=== PATIENT | male | born 1990 | race Caucasian/White ===

== ENCOUNTER 2020-03-30 23:39 | Day surgery (SDC) | payer OTHER ==
[2020-03-31] MEDS ORDERED: KETOROLAC 30 MG/ML INJ ONE (01:16)
[2020-03-31 01:53] LABS: Absolute Lymphocytes (CBC) 2.5 K/uL (0.7-4.9); Basophils % 0.4 % (0-1.3); Hematocrit 40.5 % (39.6-49.0); Lymphocytes % 11.5 % (15.3-44.8); MPV 8.2 fL (7.6-11.3); RBC Red Blood Cell Count 4.59 M/uL (4.33-5.43)
[2020-03-31] MEDS ORDERED: ONDANSETRON 4 MG/2 ML VIAL ONE ×3 (01:56→07:44)
[2020-03-31] MEDS ORDERED: MORPHINE 4 MG/ML SYR ONE (01:57)
[2020-03-31 02:04] LABS: Albumin 3.8 g/dL (3.4-5.0); Bilirubin Total 0.3 mg/dL (0.2-1.0); Potassium 3.8 mmol/L (3.5-5.1); Protein, Total 7.6 g/dL (6.4-8.2)
[2020-03-31 03:07] LABS: Blood Morphology Comment NOT SEEN (NOT SEEN); Platelet Estimate ADEQ
[2020-03-31] MEDS ORDERED: FENTANYL CITR 100 MCG/2 ML ONE ×2 (03:32→05:17)
--- NOTE | 2020-03-31 04:07 | EDPHYS ---
Physician Documentation [facility] Name: Kate Cordero Age: 29 yrs Sex: Male : 1990 Arrival Date: 03/30/2020 Time: 23:40 Bed 2 Private MD: ED Physician Josiah Leo HPI: 03/31 01:54 This 29 yrs old Male presents to ER via Ambulatory with complaints of tw4 Testicular Swelling. 01:54 The patient presents with scrotal pain, of the right side, swelling, that is moderate. tw4 Onset: The symptoms/episode began/occurred 2 day(s) ago. Modifying factors: The symptoms are alleviated by nothing, the symptoms are aggravated by nothing. Associated signs and symptoms: The patient has no apparent associated signs or symptoms. Severity of symptoms: At their worst the symptoms were moderate, in the emergency department the symptoms are unchanged. The patient has not experienced similar symptoms in the past. Historical: - Allergies: 00:34 No Known Allergies; em - PMHx: 00:34 None; em - PSHx: 00:34 None; em - Immunization history:: Adult Immunizations. - Social history:: Smoking status: Patient reports the use of cigarette tobacco products, smokes 1.5 packs per day. ROS: 01:54 Constitutional: Negative for fever, chills, and weight loss, Eyes: Negative for injury, tw4 pain, redness, and discharge, Cardiovascular: Negative for chest pain, palpitations, and edema, Respiratory: Negative for shortness of breath, cough, wheezing, and pleuritic chest pain, Abdomen/GI: Negative for abdominal pain, nausea, vomiting, diarrhea, and constipation. 01:54 : Positive for testicular pain Exam: 01:54 Constitutional: This is a well developed, well nourished patient who is awake, alert, tw4 and in no acute distress. Head/Face: Normocephalic, atraumatic. Chest/axilla: Normal chest wall appearance and motion. Nontender with no deformity. No lesions are appreciated. Cardiovascular: Regular rate and rhythm with a normal S1 and S2. No gallops, murmurs, or rubs. Normal PMI, no JVD. No pulse deficits. Respiratory: Lungs have equal breath sounds bilaterally, clear to auscultation and percussion. No rales, rhonchi or wheezes noted. No increased work of breathing, no retractions or nasal flaring. Abdomen/GI: Soft, non-tender, with normal bowel sounds. No distension or tympany. No guarding or rebound. No evidence of tenderness throughout. 01:54 : Male external genitalia: swelling: of the right testicle is noted, scrotal, tenderness, of the right testicle is noted. Vital Signs: 00:19 BP 151 / 81; Pulse 102; Resp 18; Temp 98.4(O); Pulse Ox 99% on R/A; Weight 86.18 kg; em Height 5 ft. 7 in. (170.18 cm); Pain 9/10; 01:45 BP 139 / 76; Pulse 74; Resp 18; Pulse Ox 97% on R/A; Pain 5/10; em 02:25 BP 118 / 71; Pulse 64; Resp 18; Pulse Ox 97% on R/A; Pain 5/10; em 04:00 BP 122 / 62; Pulse 71; Resp 18; Pulse Ox 99% on R/A; Pain 3/10; em 00:19 Body Mass Index 29.76 (86.18 kg, 170.18 cm) em MDM: 00:19 Patient medically screened. tw4 02:02 Differential diagnosis: nonspecific abdominal pain, appendicitis, UTI. Data reviewed: tw4 vital signs, nurses notes. Data reviewed: lab test result(s), CBC, electrolytes, radiologic studies, ultrasound. Data interpreted: Pulse oximetry: Interpretation: normal. Counseling: I had a detailed discussion with the patient and/or guardian regarding: the historical points, exam findings, and any diagnostic results supporting the discharge/admit diagnosis, lab results, radiology results, the need to transfer to another facility. 04:15 Physician consultation: Reinier Finn MD was contacted at 03:55, regarding admission, tw4 to the operating room, patient's condition, need to evaluate the patient as soon as possible, and will see patient in OR. 03/31 01:31 Order name: CMP em 03/31 01:31 Order name: CBC with Manual Differential; Complete Time: 03:54 em 03/31 03:54 Interpretation: Normal except: BASOS 2; WBC 21.30; HGB 13.2; LYM% 11.5; KAREEM% 80.2; NEUT tw4 A 17.1; BANDS [F] 4; SEGS 83; LYM 7. 03/31 00:25 Order name: Scrotum Testicles US tw4 03/31 01:31 Order name: Comprehensive Metabolic Panel; Complete Time: 03:54 EDMS 03/31 03:54 Interpretation: Normal except: CL 110; GFR 83. tw4 03/31 03:00 Order name: SARS-COV-2 RT PCR; Complete Time: 03:54 EDMS 03/31 04:09 Order name: EKG - Nurse/Tech; Complete Time: 04:09 mg2 Administered Medications: 01:25 Drug: TORadol 30 mg Route: IVP; Site: right antecubital; em 01:35 Follow up: Response: No adverse reaction; Marked relief of symptoms; Pain is decreased em 01:29 Not Given (Other Intervention Used): TORadol 60 mg IM once em 01:41 Drug: Zofran (Ondansetron) 4 mg Route: IVP; Site: right antecubital; em 02:00 Follow up: Response: No adverse reaction em 01:43 Drug: morphine 4 mg Route: IVP; Site: right antecubital; em 02:00 Follow up: Response: No adverse reaction; Marked relief of symptoms; Pain is decreased; em RASS: Alert and Calm (0) 03:19 Drug: fentaNYL (PF) 50 mcg Route: IVP; Site: right antecubital; em 04:09 Follow up: Response: No adverse reaction; Marked relief of symptoms mg2 04:08 Drug: Zosyn 3.375 grams Route: IVPB; Infused Over: 60 mins; Site: right antecubital; em 04:57 Follow up: Response: No adverse reaction; IV Status: Completed infusion; IV Intake: em 100ml Disposition: 03/31/20 04:06 Hospitalization ordered by Reinier Finn for Inpatient Admission. Preliminary diagnosis are Torsion of testis, Torsion of appendix epididymis, Testicular torsion. - Bed requested for Telemetry/MedSurg (Inpatient). - Status is Inpatient Admission. em - Condition is Stable. - Problem is new. - Symptoms are unchanged. Signatures: Dispatcher [employer] Shlomo Leong, RN RN em Josiah Leo MD MD tw4 Victor Manuel Fam RN RN mg2 Corrections: (The following items were deleted from the chart) 01:58 01:33 CORONAVIRUS+ ordered. EDMS EDMS 04:58 04:06 Hospitalization Ordered by Reinier Finn MD for Inpatient Admission. Preliminary em diagnosis is Torsion of testis; Torsion of appendix epididymis; Testicular torsion. Bed requested for Telemetry/MedSurg (Inpatient). Status is Inpatient Admission. Condition is Stable. Problem is new. Symptoms are unchanged. tw4
--- NOTE | 2020-03-31 04:07 | ER ---
Nurse's Notes [facility] Name: Kate Cordero Age: 29 yrs Sex: Male : 1990 Arrival Date: 03/30/2020 Time: 23:40 Bed 2 Private MD: Diagnosis: Torsion of testis;Torsion of appendix epididymis;Testicular torsion Presentation: 03/31 00:19 Chief complaint: Patient states: RIGHT testicular swelling and redness that started 2 em days ago after doing some plumbing work, thinks he might have pulled something, denies abd pain, N/V, fever or dysuria. Coronavirus screen: Client denies travel out of the [place] in the last 14 days. Ebola Screen: Patient negative for fever greater than or equal to 101.5 degrees Fahrenheit, and additional compatible Ebola Virus Disease symptoms Patient denies exposure to infectious person. Patient denies travel to an Ebola-affected area in the 21 days before illness onset. No symptoms or risks identified at this time. Initial Sepsis Screen: Does the patient meet any 2 criteria? HR > 90 bpm. No. Patient's initial sepsis screen is negative. Does the patient have a suspected source of infection? No. Patient's initial sepsis screen is negative. Risk Assessment: Do you want to hurt yourself or someone else? Patient reports no desire to harm self or others. Onset of symptoms was March 29, 2020. 00:19 Method Of Arrival: Ambulatory em 00:19 Acuity: ALETA 3 em Historical: - Allergies: 00:34 No Known Allergies; em - PMHx: 00:34 None; em - PSHx: 00:34 None; em - Immunization history:: Adult Immunizations. - Social history:: Smoking status: Patient reports the use of cigarette tobacco products, smokes 1.5 packs per day. Screenin:19 Abuse screen: Denies threats or abuse. Nutritional screening: No deficits noted. em Tuberculosis screening: No symptoms or risk factors identified. Fall Risk None identified. Assessment: 00:19 General: Appears in no apparent distress. uncomfortable, Behavior is calm, cooperative, em appropriate for age. Pain: Complains of pain in right testicle Pain currently is 9 out of 10 on a pain scale. Pain began 2-3 days ago. Neuro: Level of Consciousness is awake, alert, obeys commands, Oriented to person, place, time, situation. Cardiovascular: Capillary refill < 3 seconds Patient's skin is warm and dry. Respiratory: Airway is patent Respiratory effort is even, unlabored, Respiratory pattern is regular, symmetrical. GI: Abdomen is flat, Patient currently denies abdominal pain, nausea, vomiting. : Genitalia appear normal Swelling noted on scrotum Denies burning with urination. Derm: Skin is intact, is healthy with good turgor, Skin is pink, warm \T\ dry. Musculoskeletal: Capillary refill < 3 seconds, Range of motion: intact in all extremities. 01:25 Reassessment: Patient appears in no apparent distress at this time. Patient and/or em family updated on plan of care and expected duration. Pain level reassessed. Patient is alert, oriented x 3, equal unlabored respirations, skin warm/dry/pink. Patient states feeling better. 02:25 Reassessment: Patient appears in no apparent distress at this time. Patient and/or em family updated on plan of care and expected duration. Pain level reassessed. Patient is alert, oriented x 3, equal unlabored respirations, skin warm/dry/pink. 03:10 Reassessment: Patient appears in no apparent distress at this time. pending acceptance em from a facility that has capacity, reports pain is coming back, rates pain 8/10, provider notified, received VO for fentanyl 50 mcg IVP x 1. 04:00 Reassessment: Patient appears in no apparent distress at this time. Patient and/or em family updated on plan of care and expected duration. Pain level reassessed. Patient is alert, oriented x 3, equal unlabored respirations, skin warm/dry/pink. Vital Signs: 00:19 BP 151 / 81; Pulse 102; Resp 18; Temp 98.4(O); Pulse Ox 99% on R/A; Weight 86.18 kg; em Height 5 ft. 7 in. (170.18 cm); Pain 9/10; 01:45 BP 139 / 76; Pulse 74; Resp 18; Pulse Ox 97% on R/A; Pain 5/10; em 02:25 BP 118 / 71; Pulse 64; Resp 18; Pulse Ox 97% on R/A; Pain 5/10; em 04:00 BP 122 / 62; Pulse 71; Resp 18; Pulse Ox 99% on R/A; Pain 3/10; em 00:19 Body Mass Index 29.76 (86.18 kg, 170.18 cm) em ED Course: 03/30 23:40 Patient arrived in ED. cf2 03/31 00:18 Shlomo Luna, RN is Primary Nurse. em 00:19 Josiah Leo MD is Attending Physician. tw4 00:19 Patient has correct armband on for positive identification. Placed in gown. Bed in low em position. Side rails up X2. Adult w/ patient. Pulse ox on. NIBP on. 00:31 Triage completed. em 01:20 Scrotum Testicles US In Process Unspecified. EDMS 01:20 Initiated transfer to [facility] spoke with Faiza Madison. ar5 01:25 Initial lab(s) drawn, by me, sent to lab. Inserted saline lock: 20 gauge in right em antecubital area, using aseptic technique. Blood collected. 01:[address] [facility] facilities declined due to being at capacity per Faiza Madison. ar5 01:33 Initiated transfer to [facility] spoke with Henna Archuleta. ar5 02:10 All [facility] facilities declined due to being at capacity per Henna Archuleta. ar5 02:11 Initiated to [facility] spoke with Edelmira. ar5 02:17 All [facility] facilities declined due to being at capacity. ar5 02:18 Initiated transfer to [facility] spoke with Genny. ar5 02:23 All [facility] facilities declined due to being at capacity per Genny. ar5 02:29 Initiated transfer to all [facility] facilities spoke with Glenis Beckwith, she informed us ar5 they have a bed in [place]. 02:55 Initiated transfer to [facility] spoke with Kenya. She kept me on the phone and ar5 informed me they have to decline due to being at capacity. 02:58 Initiated transfer to [place] spoke with Misty. She declined the pt. due to being ar5 at capacity. 03:01 Initiated transfer to [facility] spoke with Eliz, she will give us a call ar5 back. 04:04 Reinier Finn MD is Hospitalizing Provider. tw4 04:56 No provider procedures requiring assistance completed. Patient admitted, IV remains in em place. Administered Medications: 01:25 Drug: TORadol 30 mg Route: IVP; Site: right antecubital; em 01:35 Follow up: Response: No adverse reaction; Marked relief of symptoms; Pain is decreased em 01:29 Not Given (Other Intervention Used): TORadol 60 mg IM once em 01:41 Drug: Zofran (Ondansetron) 4 mg Route: IVP; Site: right antecubital; em 02:00 Follow up: Response: No adverse reaction em 01:43 Drug: morphine 4 mg Route: IVP; Site: right antecubital; em 02:00 Follow up: Response: No adverse reaction; Marked relief of symptoms; Pain is decreased; em RASS: Alert and Calm (0) 03:19 Drug: fentaNYL (PF) 50 mcg Route: IVP; Site: right antecubital; em 04:09 Follow up: Response: No adverse reaction; Marked relief of symptoms mg2 04:08 Drug: Zosyn 3.375 grams Route: IVPB; Infused Over: 60 mins; Site: right antecubital; em 04:57 Follow up: Response: No adverse reaction; IV Status: Completed infusion; IV Intake: em 100ml Intake: 04:57 IV: 100ml; Total: 100ml. em Outcome: 04:06 Decision to Hospitalize by Provider. tw4 04:56 Admitted to OR accompanied by nurse, via stretcher, with chart, Report called to vasile Juárez RN 04:56 Condition: stable 04:56 Instructed on the need for admit, Demonstrated understanding of instructions. 04:58 Patient left the ED. em Signatures: Dispatcher [employer] Shlomo Leong RN RN Josiah Leo MD MD tw4 Victor Manuel Fam RN RN [facility] Maryjo Brush ar5 Ariel Smith cf2 Corrections: (The following items were deleted from the chart) 00:35 00:19 Chief complaint: Patient states: RIGHT testicular swelling and redness that em started 2 days ago after working on pipes, thinks he might have pulled something, denies abd pain, N/V, fever or dysuria em :16 00:19 : Denies burning with urination, em em 01:16 00:19 Derm: Skin is intact, is healthy with good turgor, Skin is pink, warm \T\ dry. em em 01:33 00:19 Chief complaint: Patient states: RIGHT testicular swelling and redness that em started 2 days ago after working doing some plumbing work, thinks he might have pulled something, denies abd pain, N/V, fever or dysuria em 01:40 01:[address] [facility] facilities declined due to being at capacity per Faiza Madison ar5 ar5 02:21 02:10 [facility] declined due to being at capacity per Henna Archuleta ar5 ar5 03:05 02:29 Initiated transfer to all [facility] facilities spoke with Glenis Beckwith ar5 ar5
[2020-03-31] MEDS ORDERED: PIPER/TAZO/NS 3.375gm 3.375 GM/100 ML BAG ONE (04:15)
[2020-03-31] MEDS ORDERED: LIDOCAINE 2% MPF 5 ML VIAL ONE (05:17)
[2020-03-31] MEDS ORDERED: propofoL 200 MG/20 ML VIAL IV ONE (05:17)
[2020-03-31] MEDS ORDERED: Ringers Lactate 1,000 ML IV ONE (05:27)
[2020-03-31] MEDS ORDERED: LIDOCAINE 1% MPF 30 ML VIAL ONE (05:35)
[2020-03-31] MEDS ORDERED: BUPIVACAINE 0.25% PF 30 ML VIAL ONE (05:35)
[2020-03-31] MEDS ORDERED: dexAMETHasone 10 MG/ML VIAL ONE (05:35)
[2020-03-31] MEDS ORDERED: GLYCOPYRROLATE 0.2 MG/ML SYR ONE (06:01)
[2020-03-31] MEDS: BACITRACIN OINTMENT 15 GM TUBE TOP ONE ×2 (06:58→07:01)
[2020-03-31] MEDS ORDERED: HYDROMORPHONE HCL 1 MG/ML INJ ONE (07:45)
[2020-03-31] MEDS ORDERED: MEPERIDINE HCL 25 MG/ML SYR ONE (07:45)
[2020-03-31] MEDS ORDERED: PROMETHAZINE INJ 25 MG/ML AMP ONE (07:46)
[2020-03-31] MEDS ORDERED: HYDROCODONE/APAP 5/325 MG TAB PO PRN (08:20)
[2020-03-31] MEDS ORDERED: HYDROCODONE/APAP 10/325 TAB ONE (08:58)
--- NOTE | 2020-03-31 09:40 | OP ---
Surgeon: CHANCE WESLEY Preoperative Diagnosis: Right testicular torsion. Postoperative Diagnosis: Right testicular torsion. Principle Procedures: 1.Right scrotal exploration. 2.Right testicular detorsion, 540 degrees of rotation noted. 3.Left testicular orchiopexy. 4.Doppler ultrasound of the right testis. 5.Right testicular orchiopexy and closed suction drain placement. Indication For Procedure: Please see consultation note and HPI dictated previously. Scrotal ultraso und and images directly reviewed and I agreed with the suspected diagnosis of right testicular torsio n. Procedure In Detail: The patient was consented in the preoperative holding area before being transfe rred to the operative suite where general anesthesia was induced. He was placed supine on the operat roseann table, padded and secured to the table appropriately. Pneumoboots was provided for DVT prophylax is. His genitalia were scrubbed using Betadine scrub and shaved in the region of the scrotum where t he anticipated right hemiscrotal incision would take place. He was then prepped using Betadine and d raped in standard fashion. The case was begun using 0.25% Marcaine to instill a Mouna's line incisi on marking within the right hemiscrotum that extended to the midline raphae approximately 2.5 cm in l ength. This was incised using a 15 blade and then deepened through the subcutaneous and dartos layer s using electrocautery. Eventually, the tunica vaginalis was sharply divided and entered, and the te stis was delivered via the opening. It was then surveyed and noted to be significantly hemorrhagic w ithin the epididymal head region and extending approximately 3 cm proximally up the cord. A portion of the testis superiorly was dusky with some duskiness inferiorly as well. I then observed that the testicle had been torsed 540 degrees and detorsed it by that amount in order to restore flow to the t estis. Immediately, the inferior pole of the testis began to pink up, indicative of potential salvag eability. The testis itself did not appear necrotic. As a result, the testis was irrigated and was wrapped in a warm saline soaked lap. It was then set aside in the detorsed position to allow recover y for a period while I turned my attention to the left hemiscrotum to perform an orchiopexy. Extending the right hemiscrotal incision to the midline raphae, I then divided the midline raphae to enter the left hemiscrotum. The tunica vaginalis was similarly divided in the left hemiscrotum, and the testis was visible. It was then delivered via the opening and ensured to be in the orthotopic po sition. There was a similar horizontal lie to the testis, but there was no evidence of twisting. As a result, the intrascrotal contents were irrigated, and then using 5-0 Prolene suture, a horizontal suture was applied via the lateral midpole of the testis into the lateral portion of the left hemiscr otum and an additional inferior pole horizontal suture was applied and attached to the most dependent portion of the scrotum. The testis was then returned in the orthotopic position back into the scrot al sac on the left side and each of the sutures was tied down to secure it in position and the orchio pexy on the left side was complete. The testicle and the subcutaneous tissues were then copiously ir rigated using saline, and the dartos layers were closed using 3-0 Vicryl suture in a running fashion. I then closed the median raphae using 3-0 Vicryl suture also in a running fashion. I then turned m y attention back to the right testis. During the time of the left orchiopexy, the right testis did improve in clinical appearance with sign ificant pinking of the lower pole of the testis. Thus, I used the Doppler ultrasound to assess for v ascular flow. Clear evidence of vasal artery blood flow to the inferior pole of the testis was demon strated initially. I was then able to demonstrate testicular artery flow to the region of the head o f the epididymis with some turbulent flow noted in the actual epididymis itself. While the epididymi s remained significantly hemorrhagic in appearance and somewhat dusky, there was no evidence of activ e necrosis at this point. As a result, I determined the testicle was at least partially viable and a t least the inferior one-third to one-half of the testis was likely to survive. As a result, I then copiously irrigated the testicle and the intrascrotal contents with saline and utilized 5-0 PDS sutur e to again perform an orchiopexy of the right testis. Right testicular orchiopexy: The 5-0 PDS suture was then used to affix the lateral right hemiscrotum to the lateral mid pole of th e testis and an additional suture was applied to the inferior pole of the testis to the most dependen t portion of the right hemiscrotum. The testis was then delivered back into the scrotal sac, and the sutures were tied down completing the orchiopexy. The subcutaneous tissues were then copiously irri gated along with the testis, and a 10-Paraguayan close suction drain was then applied extending out of th e most lateral border beyond the incision. This was placed to self suction using a bulb, and the jonathan tos layers were closed in a running fashion on the right side using 3-0 Vicryl suture. The skin and subcutaneous tissues were then closed in a running fashion using 3-0 chromic suture dipped in bacitra yuki. The skin was then covered using bacitracin, and a fluff gauze along with a scrotal support was then applied. Prior to awakening the patient from general anesthesia, a 16-Paraguayan red rubber cathete r was placed into his bladder to decompress it of any urine, and a couple of 100 cc of clear yellow u rine did drain. The patient was then awakened from general anesthesia, [facility] a ok then transferred to the recovery room in good condition. Complications: None. Discharge Disposition: He will require followup within the next few days to assess the ongoing viabi lity of the right testis. He would benefit likely from a scrotal ultrasound in about a week or 2 ass uming he does not have significant increasing pain, which would be suggestive of possible necrosis an d failure to thrive of the right testis. This would then mandate more urgent ultrasound completion t o determine if an orchiectomy might be required to remove a necrotic organ. Otherwise, he will be di scharged with a prescription for antimicrobial therapy for at least the next 14 days to minimize any risk of infectious complication or epididymitis associated with this event. WR/MODL Voice ID: [id number] Report ID: [id number]
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
[2020-03-31 11:16] VITALS: O2SAT 98
[2020-03-31 12:24] VITALS: BP 106/53; TEMP 98
--- NOTE | 2020-03-31 13:50 | RAD REPORT ---
EXAM DESCRIPTION: US - Scrotum Testicles - 03/31/2020 1:20 am CLINICAL HISTORY: Scrotal pain and swelling TECHNIQUE: Real-time and vazquez scale sonographic imaging of the scrotum and its contents was kristi gatica COMPARISON: None available for comparison FINDINGS: Right Testis: The right testis measures 4.4 x 2.4 x 2.9 cm. Somewhat heterogeneous in echo texture. No focal mass. No demonstrable vascularity on color Doppler interrogation. Left testis: The left testis measures 3.5 x 2.3 x 2.3 cm. Normal echotexture. No focal mass. Normal f low. Right epididymis: Enlarged, heterogeneous. No demonstrable vascularity on color Doppler interrogation . Left epididymis: 6 cm cyst. Normal flow. Hydroceles: Small to moderate complex hydrocele on the right. Varicoceles: None IMPRESSION: 1. No demonstrable vascularity within the right testis or epididymis compatible with t orsion. 2. Other findings as above. THIS REPORT CONTAINS FINDINGS THAT MAY BE CRITICAL TO PATIENT CARE: The findings were verbally discus sed via telephone conference with Dr. Josiah Leo on 03/31/2020 1:40 AM [facility]. The results were ackn owledged and understood. Electronically signed by: Logan Thorne MD 03/31/2020 1:40 AM [facility] Due to temporary technical issues with the PACS/Fluency reporting system, reports are being signed by the in house radiologists without review as a courtesy to insure prompt reporting. The interpreting radiologist is fully responsible for the content of the report.
--- NOTE | 2020-03-31 23:58 | EKG ---
Test Date: 2020-03-31 Test Time: 04:12:19 Industrial Machine Operator: JYOTHI MEASUREMENT RESULTS: Intervals: Rate: 65 NC: 138 QRSD: 86 QT: 380 QTc: 395 Holstein: P: 55 NC: 138 QRS: 88 T: 62 INTERPRETIVE STATEMENTS: Normal sinus rhythm Normal ECG No previous ECG available for comparison Electronically Signed On 03-31-20 23:57:39 BUSINESS EMPLOYMENT SPECIALIST by Brett Paul
== END 2020-03-31 11:15 | disposition home or self-care (01) ==
LOC: ER 23:39 → OR 03-31 05:29
PROVIDERS: ATTEND Urology
PROC: 0VSC0ZZ Reposition Bilateral Testes, Open Approach (ICD-10-PCS; principal; 2020-03-31 06:00)
DX: N44.00 Torsion of testis, unspecified (principal); Z20.822 Contact with and (suspected) exposure to COVID-19
CPT/HCPCS: 54600; 96365; 93005; 85025; 36415; 80053; 76870; 96375; 99285; U0003; J2704; J2550; J3010 ×2; J2543; J1100; J2175; J1170; J7120; J2405 ×2

== ENCOUNTER 2022-01-23 10:31 | Emergency (ER) | payer OTHER, SELFPAY ==
--- OUTSIDE RECORDS SUMMARY | 2022-01-23 10:34 | XMS REPORT | Continuity of Care Document ---
:1990 Author Organization [facility] t Address [address] [place] [address] Dr. Rain [address] [place] [id number] Care Team Providers Name Role Phone Unavailable Unavailable Unavailable Problems This patient has no known problems. Allergies, Adverse Reactions, Alerts This patient has no known allergies or adverse reactions. Medications This patient has no known medications. Procedures This patient has no known procedures. Encounters Start End Encounter Admission Attending Care Care Encounter Source Date/Time Date/Time Type Type Clinicians Facility Department ID 2021-03-03 Outpatient [facility] [id number] Common 12:35:31 [id number] [facility] Results This patient has no known results.
[2022-01-23] MEDS ORDERED: NA CHLORIDE 0.9% 1,000 ML ONE (10:51)
[2022-01-23] MEDS ORDERED: ONDANSETRON 4 MG/2 ML VIAL ONE (10:51)
[2022-01-23] MEDS ORDERED: MORPHINE 4 MG/ML SYR ONE (10:51)
[2022-01-23 11:01] LABS: Lymphocytes % 22.7 % (15.3-44.8); MCV 86.9 fL (80-100); MPV 6.8 fL (7.6-11.3); RBC Red Blood Cell Count 4.72 M/uL (4.33-5.43)
[2022-01-23 11:11] LABS: Albumin 3.9 g/dL (3.4-5.0); Bilirubin Total 0.4 mg/dL (0.2-1.0); Potassium 3.9 mmol/L (3.5-5.1); Protein, Total 7.5 g/dL (6.4-8.2)
[2022-01-23] MEDS ORDERED: KETOROLAC 30 MG/ML INJ ONE (11:15)
--- NOTE | 2022-01-23 11:53 | RAD REPORT ---
EXAM DESCRIPTION: CT - Abdomen Pelvis W Contrast - 01/23/2022 11:24 am CLINICAL HISTORY: abdominal pain, epigastric COMPARISON: <Comparisons> TECHNIQUE: Biphasic, helical CT imaging of the abdomen and pelvis was performed following 100 ml non -ionic IV contrast. Oral contrast: No. All CT scans are performed using dose optimization technique as appropriate and may include automated exposure control or mA/KV adjustment according to patient size. FINDINGS: No suspicious findings in the lung bases. The liver, spleen, and pancreas show no suspicious findings. Gallbladder is absent. Biliary tree is n ormal size. Minimal amount of pneumobilia present in the left lobe biliary radicles. This is not a co mmon if the patient has had a sphincterotomy along with a cholecystectomy. Symmetric renal function is seen with no hydronephrosis or suspicious renal mass. Few small sub centi meter renal parenchymal cysts are present bilaterally. No pyelonephritis or acute parenchymal process . No bladder abnormalities. No adrenal abnormalities. No dilated bowel loops or bowel wall thickening. Appendix normal. Gastric assessment is limited. Ther e is almost no content within the lumen. This accentuates wall thickness limiting evaluation of the s tomach. No free air, free fluid or inflammatory stranding. No hernia, mass or bulky lymphadenopathy. No suspicious bony findings. IMPRESSION: Contrast enhanced CT abdomen and pelvis showing no significant or suspicious finding. Pneumobilia is present without biliary dilatation. Pneumobilia is not unusual if the patient had a sp hincterotomy along with the cholecystectomy. Gastric assessment is limited. The absence of lumen content accentuates wall thickness.
--- NOTE | 2022-01-23 12:28 | EDPHYS ---
Physician Documentation [facility] Name: Kate Cordero Age: 31 yrs Sex: Male : 1990 Arrival Date: 01/23/2022 Time: 10:32 Bed 19 Private MD: ED Physician Duglas Moreno HPI: 01/23 10:42 This 31 yrs old Male presents to ER via Ambulatory with complaints of Abdominal Pain. jmm 10:42 The patient presents with abdominal pain in the epigastric area. Onset: The jmm symptoms/episode began/occurred gradually, 1 week(s) ago. The symptoms do not radiate. Is a 31-year-old male 1 month status post cholecystectomy. Patient states that his gallbladder was removed and he also received an endoscopy with ERCP at [facility]. Patient states that approximately beginning a week ago developing epigastric pain worse in the evenings. Denies vomiting or diarrhea. Denies fever.. Historical: - Allergies: 10:37 No Known Allergies; ll1 - PMHx: 10:37 None; ll1 - PSHx: 10:37 Cholecystectomy; ll1 - Immunization history:: Client reports having NOT received the Covid vaccine. - Social history:: Smoking status: Patient reports the use of cigarette tobacco products, smokes one pack cigarettes per day. ROS: 10:42 Constitutional: Negative for fever, chills, and weight loss, Cardiovascular: Negative jmm for chest pain, palpitations, and edema, Respiratory: Negative for shortness of breath, cough, wheezing, and pleuritic chest pain. 10:42 Abdomen/GI: Positive for abdominal pain. 10:42 All other systems are negative. Exam: 10:42 Constitutional: This is a well developed, well nourished patient who is awake, alert, jmm and in no acute distress. Head/Face: atraumatic. Eyes: EOMI, no conjunctival erythema appreciated ENT: Moist Mucus Membranes Neck: Trachea midline, Supple Chest/axilla: Normal chest wall appearance and motion. Cardiovascular: Regular rate and rhythm. No edema appreciated Respiratory: Normal respirations, no respiratory distress appreciated 10:42 Back: Normal ROM Skin: General appearance color normal MS/ Extremity: Moves all extremities, no obvious deformities appreciated, no edema noted to the lower extremities Neuro: Awake and alert Psych: Behavior is normal, Mood is normal, Patient is cooperative and pleasant 10:42 Abdomen/GI: Inspection: abdomen appears normal, Bowel sounds: normal, Palpation: soft, mild abdominal tenderness, in the epigastric area. Vital Signs: 10:38 BP 141 / 80; Pulse 88; Resp 18; Temp 97.6; Pulse Ox 100% ; Weight 79.38 kg; Height 5 ll1 ft. 7 in. (170.18 cm); Pain 10/10; 11:15 BP 133 / 89; Pulse 57; Resp 16; Pulse Ox 100% ; ll1 12:08 Pain 0/10; ll1 10:38 Body Mass Index 27.41 (79.38 kg, 170.18 cm) ll1 MDM: 11:04 Patient medically screened. [facility] 12:26 Data reviewed: vital signs, nurses notes. Counseling: I had a detailed discussion with [facility] the patient and/or guardian regarding: the historical points, exam findings, and any diagnostic results supporting the discharge/admit diagnosis, lab results, radiology results, the need for outpatient follow up, to return to the emergency department if symptoms worsen or persist or if there are any questions or concerns that arise at home. ED course: Imaging studies revealed pneumobilia, which apparently is normal status postcholecystectomy. Patient's pain is relieved in the ED. Patient is advised to follow-up with GI for further evaluation otherwise given strict return precautions. Patient understood agrees plan of care.. 01/23 10:42 Order name: CBC with Diff; Complete Time: 11:04 [facility] 01/23 10:42 Order name: CMP; Complete Time: 11:12 [facility] 01/23 10:42 Order name: Lipase; Complete Time: 11:12 [facility] 01/23 10:42 Order name: CT Abd/Pelvis - IV Contrast Only; Complete Time: 11:57 [facility] 01/23 10:42 Order name: IV Saline Lock; Complete Time: 10:43 [facility] 01/23 10:42 Order name: Labs collected and sent; Complete Time: 10:43 [facility] Administered Medications: 10:51 Drug: Zofran (Ondansetron) 4 mg Route: IVP; Site: right antecubital; ll1 11:16 Follow up: Response: No adverse reaction 1 10:53 Drug: morphine 4 mg Route: IVP; Infused Over: 4 mins; Site: right antecubital; ll1 11:16 Follow up: Response: No adverse reaction; Pain is decreased; RASS: Alert and Calm (0) ll1 10:55 Drug: NS 0.9% 1000 ml Route: IV; Rate: 1 bolus; Site: right antecubital; ll1 12:08 Follow up: Response: No adverse reaction; IV Status: Completed infusion; IV Intake: ll1 1000ml 11:16 Drug: Ketorolac 30 mg Route: IVP; Site: right antecubital; ll1 12:08 Follow up: Response: No adverse reaction; Pain is decreased; RASS: Alert and Calm (0) ll1 Disposition Summary: 01/23/22 12:28 Discharge Ordered Location: Home [facility] Condition: Stable [facility] Diagnosis - Epigastric pain [facility] Followup: [facility] - With: Vikram Shi MD - When: 1 - 2 days - Reason: Recheck today's complaints, Continuance of care, Re-evaluation by your physician Followup: [facility] - With: Cooper Carranza MD - When: 2 - 3 days - Reason: Recheck today's complaints, Continuance of care, Re-evaluation by your physician Discharge Instructions: - Discharge Summary Sheet [facility] - Abdominal Pain, Adult [facility] Forms: - Medication Reconciliation Form [facility] - Thank You Letter [facility] - Antibiotic Education [facility] - Prescription Opioid Use [facility] Prescriptions: - Carafate 1 gram Oral Tablet - take 1 tablet by ORAL route 4 times per day take on an empty stomach, beginning jmm on waking and last dose at bedtime; 100 tablet; Refills: 0, Product Selection Permitted - Pepcid 20 mg Oral Tablet - take 1 tablet by ORAL route every 12 hours for 10 days; 20 tablet; Refills: 0, [facility] Product Selection Permitted - dicyclomine 20 mg Oral Tablet - take 1 tablet by ORAL route 4 times per day; 30 tablet; Refills: 0, Product [facility] Selection Permitted - ondansetron 4 mg Oral tablet,disintegrating - take 1 tablet by ORAL route every 4-6 hours As needed; 20 tablet; Refills: 0, [facility] Product Selection Permitted Signatures: Dispatcher [employer] Jong Son PA PA Brian Toth RN RN ll1
--- NOTE | 2022-01-23 12:28 | ER ---
Nurse's Notes [facility] Name: Kate Cordero Age: 31 yrs Sex: Male : 1990 Arrival Date: 01/23/2022 Time: 10:32 Bed 19 Private MD: Diagnosis: Epigastric pain Presentation: 01/23 10:38 Chief complaint: Patient states: Upper abd pain for 1 week, more severe past few days. ll1 Denies fever, no N/V/D. Had gallbladder removed last month. Coronavirus screen: Vaccine status: Patient reports being unvaccinated. Client denies travel out of the [place] in the last 14 days. At this time, the client does not indicate any symptoms associated with coronavirus-19. Ebola Screen: Patient denies travel to an Ebola-affected area in the 21 days before illness onset. Initial Sepsis Screen: Does the patient meet any 2 criteria? No. Patient's initial sepsis screen is negative. Does the patient have a suspected source of infection? Yes: Acute abdominal pain. Risk Assessment: Do you want to hurt yourself or someone else? Patient reports no desire to harm self or others. Onset of symptoms was January 16, 2022. 10:38 Method Of Arrival: Ambulatory ll1 10:38 Acuity: ALETA 3 ll1 Triage Assessment: 10:39 General: Appears uncomfortable, Behavior is calm, cooperative, appropriate for age. ll1 Pain: Complains of pain in abdomen Pain currently is 10 out of 10 on a pain scale. Quality of pain is described as burning, aching, sharp, Pain began about 1 week. Neuro: No deficits noted. Cardiovascular: No deficits noted. GI: Bowel sounds present X 4 quads. Abd is soft Abdomen is tender to palpation in epigastric area and left upper quadrant Parent/caregiver reports the patient having cramping, upper abdominal pain. Historical: - Allergies: 10:37 No Known Allergies; ll1 - PMHx: 10:37 None; ll1 - PSHx: 10:37 Cholecystectomy; ll1 - Immunization history:: Client reports having NOT received the Covid vaccine. - Social history:: Smoking status: Patient reports the use of cigarette tobacco products, smokes one pack cigarettes per day. Screenin:18 [facility] ED Fall Risk Assessment (Adult) Altered Elimination Yes (1 pt) Score/Fall Risk ll1 Level 0 - 2 = Low Risk Oriented to surroundings, Maintained a safe environment, Educated pt \T\ family on fall prevention, incl call for assistance when getting out of bed, Hourly rounding (assess needs \T\ fall precautionary measures) done. Abuse screen: Denies threats or abuse. Nutritional screening: No deficits noted. Tuberculosis screening: No symptoms or risk factors identified. Assessment: 11:16 Reassessment: No changes from previously documented assessment. Patient and/or family ll1 updated on plan of care and expected duration. Pain level reassessed. Patient is alert, oriented x 3, equal unlabored respirations, skin warm/dry/pink. 12:41 General: Pt refused discharge VS. kb3 Vital Signs: 10:38 BP 141 / 80; Pulse 88; Resp 18; Temp 97.6; Pulse Ox 100% ; Weight 79.38 kg; Height 5 ll1 ft. 7 in. (170.18 cm); Pain 10/10; 11:15 BP 133 / 89; Pulse 57; Resp 16; Pulse Ox 100% ; ll1 12:08 Pain 0/10; ll1 10:38 Body Mass Index 27.41 (79.38 kg, 170.18 cm) ll1 ED Course: 10:32 Patient arrived in ED. as 10:32 Jong Maier PA is PHCP. [facility] 10:32 Duglas Moreno MD is Attending Physician. [facility] 10:37 Brian Matos, CHANELL is Primary Nurse. ll1 10:37 Arm band placed on Patient placed in an exam room, on a stretcher. ll1 10:39 Triage completed. ll1 10:43 Patient has correct armband on for positive identification. Bed in low position. Call mm9 light in reach. Pulse ox on. NIBP on. PATIENT IS VERY CURT AND AGITATED. 10:50 Inserted saline lock: 22 gauge in right antecubital area, using aseptic technique. ll1 Blood collected. 11:19 No provider procedures requiring assistance completed. ll1 11:26 CT Abd/Pelvis - IV Contrast Only In Process Unspecified. EDMS 12:27 Vikram Shi MD is Referral Physician. jmm 12:28 Cooper Carranza MD is Referral Physician. jmm 12:42 IV discontinued, intact, bleeding controlled, No redness/swelling at site. kb3 Administered Medications: 10:51 Drug: Zofran (Ondansetron) 4 mg Route: IVP; Site: right antecubital; ll1 11:16 Follow up: Response: No adverse reaction ll1 10:53 Drug: morphine 4 mg Route: IVP; Infused Over: 4 mins; Site: right antecubital; ll1 11:16 Follow up: Response: No adverse reaction; Pain is decreased; RASS: Alert and Calm (0) ll1 10:55 Drug: NS 0.9% 1000 ml Route: IV; Rate: 1 bolus; Site: right antecubital; ll1 12:08 Follow up: Response: No adverse reaction; IV Status: Completed infusion; IV Intake: ll1 1000ml 11:16 Drug: Ketorolac 30 mg Route: IVP; Site: right antecubital; ll1 12:08 Follow up: Response: No adverse reaction; Pain is decreased; RASS: Alert and Calm (0) ll1 Medication: 11:19 VIS not applicable for this client. ll1 Intake: 12:08 IV: 1000ml; Total: 1000ml. ll1 Outcome: 12:28 Discharge ordered by . gael 12:42 Discharged to home ambulatory. kb3 12:42 Condition: stable 12:42 Discharge instructions given to patient, Instructed on discharge instructions, follow up and referral plans. medication usage, Demonstrated understanding of instructions, follow-up care, medications, Prescriptions given X 4. 12:42 Patient left the ED. kb3 Signatures: Dispatcher [employer] EDMS Jong Maier PA PA jmm Martinez, Amelia as Lewis, Lynsay RN RN 1 Tammy Bueno RN RN kb3 Agnes Garrison mm9
[2022-01-23 13:02] VITALS: TEMP 97.6; O2SAT 100
[2022-01-23 13:07] VITALS: BP 133/89
== END 2022-01-23 12:42 | disposition home or self-care (01) ==
LOC: ER 10:31
DX: R10.13 Epigastric pain (principal)
CPT/HCPCS: 36415; 74177; 80053; 82565; 83690; 85025; 96361; 96374; 96375; 99284; J2405; J7030; Q9967

== ENCOUNTER 2023-12-16 04:40 | Emergency (ER) | payer SELFPAY ==
[2023-12-16] MEDS ORDERED: MORPHINE 4 MG/ML SYR ONE (05:10)
[2023-12-16] MEDS ORDERED: NA CHLORIDE 0.9% 1,000 ML ONE (05:10)
[2023-12-16] MEDS ORDERED: FAMOTIDINE 20 MG/2 ML VIAL IV ONE (05:10)
[2023-12-16] MEDS ORDERED: ONDANSETRON 4 MG/2 ML VIAL ONE (05:10)
[2023-12-16 05:21] LABS: Absolute Basophils 0.1 K/uL (0-0.5); Absolute Eosinophils 0.9 K/uL (0-0.5); Absolute Lymphocytes (CBC) 2.8 K/uL (0.7-4.9); Absolute Monocytes 0.6 K/uL (0.1-1.3); Absolute Neutrophil 6.6 K/uL (1.8-8.0); Basophils % 0.5 % (0-1.3); Eosinophils % 7.8 % (0-4.4); Hematocrit 44.3 % (39.6-49.0); Hemoglobin 14.7 g/dL (13.6-17.9); Lymphocytes % 25.7 % (15.3-44.8); MCH 29.6 pg (27.0-35.0); MCHC 33.3 g/dL (32.0-36.0); MPV 7.2 fL (7.6-11.3); Monocytes % 5.6 % (3.3-12.3); Neutrophils % 60.4 % (41.7-73.7); Platelets 299 thou/uL (152-406); RBC Red Blood Cell Count 4.98 M/uL (4.33-5.43); Red Cell Distribution Width 13.5 % (12.1-15.2)
[2023-12-16 05:41] LABS: Albumin/Globulin Ratio 1.1 (1.1-1.8); Anion Gap 7.8 mEq/L (5.0-15.0); Bilirubin Total 0.4 mg/dL (0.2-1.0); Globulin 3.5 g/dL (2.3-3.5); Potassium 3.8 mEq/L (3.5-5.1); Protein, Total 7.5 g/dL (6.4-8.2)
[2023-12-16] MEDS ORDERED: KETOROLAC 30 MG/ML INJ ONE (06:58)
--- NOTE | 2023-12-16 07:31 | RAD REPORT ---
PROCEDURE: CT Abdomen and Pelvis With Intravenous Contrast CLINICAL INDICATION: The patient is 33 years old and is Male; Epigastric abdominal pain. TECHNIQUE: Axial computed tomography images of the abdomen and pelvis with intravenous contrast. Sagittal and coronal reformatted images were created and reviewed. This CT exam was performed using one or more of the following dose reduction techniques: automated exposure control, adjustment of the mA a nd/or kV according to patient size, and/or use of iterative reconstruction technique. COMPARISON: CT Abdomen Pelvis 01/23/2022. FINDINGS: LUNG BASES: Unremarkable No mass. No consolidation. ABDOMEN: LIVER: Unremarkable No mass. GALLBLADDER AND BILE DUCTS: Cholecystectomy clips noted in the gallbladder fossa. No greater than e xpected ductal dilatation. PANCREAS: Unremarkable No mass. No ductal dilation. SPLEEN: Unremarkable No splenomegaly. ADRENALS: Unremarkable No mass. KIDNEYS AND URETERS: Unremarkable No solid mass. No hydronephrosis. STOMACH AND BOWEL: Oral contrast versus other hyperdense material demonstrated throughout the colon ic lumen. No evidence of small or large bowel obstruction. No perienteric or pericolonic fat stranding or abnormal mucosal thickening. PELVIS: APPENDIX: No findings to suggest acute appendicitis. BLADDER: Unremarkable No mass. REPRODUCTIVE: Unremarkable as visualized. ABDOMEN and PELVIS: INTRAPERITONEAL SPACE: Unremarkable No free air. No significant fluid collection. BONES/JOINTS: Moderate L5-S1 degenerative disc disease with mild diffuse disc osteophyte complex. No dislocation. No high-grade bony spinal canal or neuroforaminal stenosis. No acute osseous abnormality. SOFT TISSUES: Unremarkable VASCULATURE: Unremarkable No abdominal aortic aneurysm. LYMPH NODES: Unremarkable No enlarged lymph nodes. IMPRESSION: 1. No acute abnormality of the abdomen or pelvis. 2. Prior cholecystectomy. 3. Moderate L5-S1 degenerative disc disease. Electronically signed by: Chris Nuñez MD 12/16/2023 07:28 AM [facility] Due to temporary technical issues with the PACS/[employer] reporting system, reports are being efrain d by the in-house radiologist without review as a courtesy to ensure prompt reporting the interpreting radiologist is fully responsible for the content of the report. Transcribed Date/Time: 12/16/2023 7:31 AM
--- NOTE | 2023-12-16 07:36 | EDPHYS ---
Physician Documentation [facility] Name: Kate Cordero Age: 33 yrs Sex: Male : 1990 Arrival Date: 12/16/2023 Time: 04:40 Bed 6 Private MD: ED Physician Tomas Sharpe HPI: 12/15 05:02 This 33 yrs old Male presents to ER via Ambulatory with complaints of ec2 Abdominal Pain, Nausea. 05:02 Patient arrives today for evaluation of upper abdominal pain. Patient reports that he ec2 has a history has been having upper abdominal pain since last night. Reports associated nausea, no vomiting. Denies any diarrheal symptoms. Patient reports no cough or cold symptoms. No urinary complaints. No testicular issues. Previous history of cholecystectomy.. Historical: - Allergies: 04:55 No Known Allergies; lg3 - Home Meds: 04:55 None [Active]; lg3 - PMHx: 04:55 testiculat tortion; lg3 - PSHx: 04:55 Cholecystectomy; right testicle (Cholecystectomy); lg3 - Immunization history:: Adult Immunizations up to date. - Infectious Disease History:: Denies. - Social history:: Smoking status: Patient reports the use of cigarette tobacco products, smokes one pack cigarettes per day. Patient uses street drugs, marijuana, Patient/guardian denies using alcohol. ROS: 05:02 Constitutional: as per hpi ec2 Exam: 05:02 Constitutional: GEN: NAD Head: atraumatic Eyes: EOMI Ears: External ears are ec2 normal. CV: regular rate LUNGS: no respiratory distress ABD: non-distended, soft, tender in the epigastrium, not guarding, not rigid SKIN: no evidence of rashes MSK: no evidence of trauma Vital Signs: 04:53 BP 120 / 69; Pulse 61; Resp 17 S; Temp 97.1(TE); Pulse Ox 98% on R/A; Weight 79.38 kg lg3 (R); Height 5 ft. 7 in. (R); Pain 10/10; 05:26 BP 122 / 63; Pulse 46; Resp 17; Temp 97.1; Pulse Ox 99% ; Pain 10/10; bm8 05:54 BP 111 / 77; Pulse 54; Resp 17; Temp 97.1; Pulse Ox 100% ; Pain 2/10; bm8 06:48 BP 144 / 79; Pulse 43; Resp 18; Temp 97.1; Pulse Ox 97% on R/A; Pain 8/10; bm8 07:14 BP 115 / 63; Pulse 52; Resp 16; Pulse Ox 97% ; ko1 04:53 Body Mass Index 27.41 (79.38 kg, 170.18 cm) lg3 04:53 Pain Scale: Adult lg3 05:26 Pain Scale: Adult bm8 05:54 Pain Scale: Adult bm8 06:48 Pain Scale: Adult bm8 Gerald Coma Score: 05:26 Eye Response: spontaneous(4). Motor Response: obeys commands(6). Verbal Response: bm8 oriented(5). Total: 15. 05:55 Eye Response: spontaneous(4). Motor Response: obeys commands(6). Verbal Response: bm8 oriented(5). Total: 15. 06:48 Eye Response: spontaneous(4). Motor Response: obeys commands(6). Verbal Response: bm8 oriented(5). Total: 15. MDM: 04:53 Medical Screening Exam initiated ec2 05:02 Data reviewed: vital signs, nurses notes. ED course: Patient arrives today for upper ec2 abdominal pain. Examination remarkable for abdominal findings as above. Obtain lab work, CT imaging and treat the patient's pain. Differential includes pancreatitis, gastroenteritis.. 08:12 Differential diagnosis: Gastritis, pancreatitis, bowel obstruction. I considered the rt following discharge prescriptions or medication management in the emergency department Medications were administered in the Emergency Department. See MAR. Independent interpretation of the following test(s) in the Emergency Department CT Scan: My interpretation is No bowel obstruction syndrome interpretation of CT scan images. Test considered but Not performed: Ultrasound Prior cholecystectomy, ultrasound not indicated. Counseling: I had a detailed discussion with the patient and/or guardian regarding the historical points, exam findings, and any diagnostic results supporting the discharge/admit diagnosis, lab results, radiology results, the need for outpatient follow up, to return to the emergency department if symptoms worsen or persist or if there are any questions or concerns that arise at home. Response to treatment: the patient's symptoms have markedly improved after treatment. 12/15 04:53 Order name: CBC with Diff; Complete Time: 06:27 ec2 12/15 04:53 Order name: CMP; Complete Time: 05:45 ec2 12/15 04:53 Order name: Lipase; Complete Time: 05:45 ec2 12/15 04:53 Order name: CT Abd/Pelvis - IV Contrast Only ec2 12/15 04:53 Order name: IV Saline Lock; Complete Time: 05:26 ec2 12/15 04:53 Order name: Labs collected and sent; Complete Time: 05:26 ec2 Administered Medications: 05:25 Drug: NS 0.9% IV 1000 ml IV at 1 bolus Per protocol; to be given as a bolus over 60 bm8 minutes Route: IV; Rate: 1 bolus; Site: right antecubital; 05:54 Follow up: Response: No adverse reaction; IV Status: Completed infusion; IV Intake: bm8 1000ml 05:25 Drug: Famotidine IVP 20 mg IVP once; dilute with 10 mL 0.9% NaCl; give over 2 minutes bm8 Route: IVP; Site: right antecubital; 05:51 Follow up: Response: No adverse reaction bm8 05:26 Drug: Ondansetron IVP 4 mg IVP once; over 2 minutes Route: IVP; Site: right antecubital;bm8 05:51 Follow up: Response: No adverse reaction bm8 05:26 Drug: morphine IVP or IV 4 mg IVP once over 4 mins Route: IVP; Infused Over: 4 mins; bm8 Site: right antecubital; 05:51 Follow up: Response: No adverse reaction bm8 07:00 Drug: Ketorolac IVP 15 mg IVP once Route: IVP; Site: right antecubital; bm8 07:15 Follow up: Response: No adverse reaction ko1 Disposition Summary: 12/16/23 07:36 Discharge Ordered Notes: Location: Home rt Problem: new rt Symptoms: have improved rt Condition: Stable rt Diagnosis - Epigastric pain rt Followup: rt - With: Private Physician - When: 2 - 3 days - Reason: Discharge Instructions: - Discharge Summary Sheet rt - Abdominal Pain, Adult rt - Gastritis, Adult rt Forms: - Medication Reconciliation Form rt - Antibiotic Education rt - Prescription Opioid Use rt - Patient Portal Instructions rt - Leadership Thank You Letter rt Prescriptions: - Carafate 100 mg/mL Oral suspension - take 10 milliliter ORAL route every 6 hours as needed; 200 milliliter; Refills: rt 0, Product Selection Permitted - ondansetron 4 mg Oral Tablet,disintegrating - take 1 tablet ORAL route every 6 hours as needed for nausea and vomiting; 15 rt tablet; Refills: 0, Product Selection Permitted - Protonix 40 mg Oral Tablet - take 1 tablet ORAL route once daily; 30 tablet; Refills: 0, Product Selection rt Permitted Signatures: Dispatcher [employer] Stephani Garcia RN RN lg3 Tomas Sharpe MD MD rt Levi Youssef MD MD ec2 Eben Ortiz RN RN bm8 Sharlene Bertrand RN ko1
--- NOTE | 2023-12-16 07:36 | ER ---
Nurse's Notes [facility] Name: Kate Cordero Age: 33 yrs Sex: Male : 1990 Arrival Date: 12/16/2023 Time: 04:40 Bed 6 Private MD: Diagnosis: Epigastric pain Presentation: 12/15 04:53 Chief complaint: Patient states: upper abdominal pain with nausea since 1900 yesterday lg3 with no relief after Pepto. Coronavirus screen: Client denies travel out of the [place] in the last 14 days. At this time, the client does not indicate any symptoms associated with coronavirus-19. Ebola Screen: No symptoms or risks identified at this time. Initial Sepsis Screen: Does the patient meet any 2 criteria? No. Patient's initial sepsis screen is negative. Does the patient have a suspected source of infection? No. Patient's initial sepsis screen is negative. Risk Assessment: Do you want to hurt yourself or someone else? Patient reports no desire to harm self or others. Onset of symptoms was December 15, 2023. 04:53 Method Of Arrival: Ambulatory lg3 04:53 Acuity: ALETA 3 lg3 Triage Assessment: 04:55 General: Appears in no apparent distress. uncomfortable, Behavior is calm, cooperative. lg3 Pain: Complains of pain in epigastric area, right upper quadrant and left upper quadrant Pain currently is 10 out of 10 on a pain scale. Also complains of nausea. EENT: No deficits noted. No signs and/or symptoms were reported regarding the EENT system. Neuro: No deficits noted. Orta Agitation-Sedation Scale (RASS): 0 - Alert and Calm Level of Consciousness is awake, alert, obeys commands, Oriented to person, place, time, situation. Cardiovascular: No deficits noted. Denies chest pain, shortness of breath, Capillary refill < 3 seconds Clubbing of nail beds is absent JVD is absent Patient's skin is warm and dry. Respiratory: No deficits noted. Airway is patent Respiratory effort is even, unlabored, Respiratory pattern is regular, symmetrical. GI: Abdomen is flat, non-distended, Reports upper abdominal pain, nausea. : No signs and/or symptoms were reported regarding the genitourinary system. Derm: No deficits noted. No signs and/or symptoms reported regarding the dermatologic system. Skin is intact, is healthy with good turgor, Skin is dry, Skin is normal, Skin temperature is warm. Musculoskeletal: No deficits noted. No signs and/or symptoms reported regarding the musculoskeletal system. Circulation, motion, and sensation intact. Range of motion: intact in all extremities. Historical: - Allergies: 04:55 No Known Allergies; lg3 - Home Meds: 04:55 None [Active]; lg3 - PMHx: 04:55 testiculat tortion; lg3 - PSHx: 04:55 Cholecystectomy; right testicle (Cholecystectomy); lg3 - Immunization history:: Adult Immunizations up to date. - Infectious Disease History:: Denies. - Social history:: Smoking status: Patient reports the use of cigarette tobacco products, smokes one pack cigarettes per day. Patient uses street drugs, marijuana, Patient/guardian denies using alcohol. Screenin:26 [facility] ED Fall Risk Assessment (Adult) History of falling in the last 3 months, bm8 including since admission No falls in past 3 months (0 pts) Confusion or Disorientation No (0 pts) Intoxicated or Sedated No (0 pts) Impaired Gait No (0 pts) Mobility Assist Device Used No (0 pt) Altered Elimination No (0 pt) Score/Fall Risk Level 0 - 2 = Low Risk Oriented to surroundings, Maintained a safe environment, Educated pt \T\ family on fall prevention, incl call for assistance when getting out of bed, Assessed \T\ reinforced patient's understanding of fall precautions, Hourly rounding (assess needs \T\ fall precautionary measures) done, Used ambulatory aids as needed (educated on \T\ assisted with), Used gait belt as appropriate. Abuse screen: Denies threats or abuse. Nutritional screening: No deficits noted. Tuberculosis screening: No symptoms or risk factors identified. Assessment: 05:26 Reassessment: Patient appears in no apparent distress at this time. Patient and/or bm8 family updated on plan of care and expected duration. Pain level reassessed. Patient is alert, oriented x 3, equal unlabored respirations, skin warm/dry/pink. General: Appears in no apparent distress. uncomfortable, Behavior is calm, cooperative, appropriate for age. Pain: Complains of pain in left upper quadrant and right upper quadrant Pain currently is 10 out of 10 on a pain scale. Neuro: No deficits noted. Level of Consciousness is awake, alert, obeys commands, Oriented to person, place, time, situation, Appropriate for age. Cardiovascular: Denies chest pain, Capillary refill < 3 seconds in bilateral fingers. Respiratory: Airway is patent Respiratory effort is even, unlabored, Respiratory pattern is regular, symmetrical. GI: Abdomen is flat, non-distended, Bowel sounds present X 4 quads. Abdomen is tender to palpation in right upper quadrant and left upper quadrant Reports upper abdominal pain, nausea, Pain is 10 out of 10 on a pain scale. : No signs and/or symptoms were reported regarding the genitourinary system. EENT: No signs and/or symptoms were reported regarding the EENT system. Derm: No signs and/or symptoms reported regarding the dermatologic system. Musculoskeletal: No signs and/or symptoms reported regarding the musculoskeletal system. 05:55 Reassessment: Patient appears in no apparent distress at this time. Patient and/or bm8 family updated on plan of care and expected duration. Pain level reassessed. Patient is alert, oriented x 3, equal unlabored respirations, skin warm/dry/pink. Patient states feeling better. Patient states symptoms have improved. 06:48 Reassessment: Patient appears in no apparent distress at this time. Patient and/or bm8 family updated on plan of care and expected duration. Pain level reassessed. Patient is alert, oriented x 3, equal unlabored respirations, skin warm/dry/pink. pt reports return of abd pain post CT scan,. MD notified awaiting further orders. Vital Signs: 04:53 BP 120 / 69; Pulse 61; Resp 17 S; Temp 97.1(TE); Pulse Ox 98% on R/A; Weight 79.38 kg lg3 (R); Height 5 ft. 7 in. (R); Pain 10/10; 05:26 BP 122 / 63; Pulse 46; Resp 17; Temp 97.1; Pulse Ox 99% ; Pain 10/10; bm8 05:54 BP 111 / 77; Pulse 54; Resp 17; Temp 97.1; Pulse Ox 100% ; Pain 2/10; bm8 06:48 BP 144 / 79; Pulse 43; Resp 18; Temp 97.1; Pulse Ox 97% on R/A; Pain 8/10; bm8 07:14 BP 115 / 63; Pulse 52; Resp 16; Pulse Ox 97% ; ko1 04:53 Body Mass Index 27.41 (79.38 kg, 170.18 cm) lg3 04:53 Pain Scale: Adult lg3 05:26 Pain Scale: Adult bm8 05:54 Pain Scale: Adult bm8 06:48 Pain Scale: Adult bm8 Gerald Coma Score: 05:26 Eye Response: spontaneous(4). Motor Response: obeys commands(6). Verbal Response: bm8 oriented(5). Total: 15. 05:55 Eye Response: spontaneous(4). Motor Response: obeys commands(6). Verbal Response: bm8 oriented(5). Total: 15. 06:48 Eye Response: spontaneous(4). Motor Response: obeys commands(6). Verbal Response: bm8 oriented(5). Total: 15. ED Course: 04:45 Patient arrived in ED. gm2 04:46 Eben Ortiz, RN is Primary Nurse. bm8 04:48 Levi Youssef MD is Attending Physician. ec2 04:55 Triage completed. lg3 04:55 Arm band placed on right wrist. lg3 05:26 Patient has correct armband on for positive identification. Bed in low position. Call bm8 light in reach. Side rails up X 1. Client placed on continuous cardiac and pulse oximetry monitoring. NIBP monitoring applied. Pulse ox on. NIBP on. Door closed. Noise minimized. Pillow given. Verbal reassurance given. Head of bed elevated. 05:26 No provider procedures requiring assistance completed. Initial lab(s) drawn, by [place] sent to lab. Inserted saline lock: 18 gauge in right antecubital area, using aseptic technique. Blood collected. Flushed with 10 mL NS. Patient maintains SpO2 saturation greater than 95% on room air. 06:27 CT Abd/Pelvis - IV Contrast Only In Process Unspecified. EDMS 07:02 Attending Physician role handed off by Levi Youssef MD rt 07:02 Tomas Sharpe MD is Attending Physician. rt 07:50 Provided Education on: meds. ko1 07:50 IV discontinued, intact, bleeding controlled, No redness/swelling at site. Pressure ko1 dressing applied. Administered Medications: 05:25 Drug: NS 0.9% IV 1000 ml IV at 1 bolus Per protocol; to be given as a bolus over 60 bm8 minutes Route: IV; Rate: 1 bolus; Site: right antecubital; 05:54 Follow up: Response: No adverse reaction; IV Status: Completed infusion; IV Intake: bm8 1000ml 05:25 Drug: Famotidine IVP 20 mg IVP once; dilute with 10 mL 0.9% NaCl; give over 2 minutes bm8 Route: IVP; Site: right antecubital; 05:51 Follow up: Response: No adverse reaction bm8 05:26 Drug: Ondansetron IVP 4 mg IVP once; over 2 minutes Route: IVP; Site: right antecubital;bm8 05:51 Follow up: Response: No adverse reaction bm8 05:26 Drug: morphine IVP or IV 4 mg IVP once over 4 mins Route: IVP; Infused Over: 4 mins; bm8 Site: right antecubital; 05:51 Follow up: Response: No adverse reaction bm8 07:00 Drug: Ketorolac IVP 15 mg IVP once Route: IVP; Site: right antecubital; bm8 07:15 Follow up: Response: No adverse reaction ko1 Medication: 05:26 VIS not applicable for this client. bm8 Intake: 05:54 IV: 1000ml; Total: 1000ml. bm8 Outcome: 07:36 Discharge ordered by . rt 07:50 Discharged to home ambulatory, ko1 07:50 Condition: stable 07:50 Discharge instructions given to patient, Instructed on discharge instructions, follow up and referral plans. medication usage, Demonstrated understanding of instructions, follow-up care, medications, Prescriptions given X 3, 07:51 Patient left the ED. ko1 Signatures: Dispatcher [employer] EDStephani Hyatt RN RN lg3 Sharlene Bertrand RN RN ko1 Tomas Sharpe MD MD rt Levi Youssef MD MD ec2 Wendie Gonzalez gm2 Eben Ortiz, RN RN bm8
[2023-12-16 08:00] VITALS: TEMP 97.1
[2023-12-16 08:04] VITALS: O2SAT 97
[2023-12-16 08:05] VITALS: BP 115/63
== END 2023-12-16 07:51 | disposition home or self-care (01) ==
LOC: ER 04:40
DX: R10.13 Epigastric pain (principal); F17.210 Nicotine dependence, cigarettes, uncomplicated
CPT/HCPCS: 36415; 74177; 80053; 83690; 85025; 96374; 96375; 99284; J2405; J7030; Q9967

== ENCOUNTER 2024-06-12 15:17 | Emergency (ER) | payer SELFPAY ==
[2024-06-12] MEDS ORDERED: KETOROLAC 30 MG/ML INJ ONE (15:53)
[2024-06-12] MEDS ORDERED: FAMOTIDINE 20 MG/2 ML VIAL IV ONE (15:53)
[2024-06-12] MEDS ORDERED: ONDANSETRON 4 MG/2 ML VIAL ONE (15:53)
[2024-06-12] MEDS ORDERED: NA CHLORIDE 0.9% 1,000 ML ONE (15:53)
[2024-06-12 15:55] LABS: Absolute Basophils 0.1 K/uL (0-0.5); Absolute Eosinophils 0.3 K/uL (0-0.5); Absolute Lymphocytes (CBC) 1.4 K/uL (0.7-4.9); Absolute Monocytes 0.4 K/uL (0.1-1.3); Absolute Neutrophil 10.5 K/uL (1.8-8.0); Basophils % 0.4 % (0-1.3); Eosinophils % 2.7 % (0-4.4); Hematocrit 36.5 % (39.6-49.0); Hemoglobin 12.5 g/dL (13.6-17.9); Lymphocytes % 11.2 % (15.3-44.8); MCH 29.1 pg (27.0-35.0); MCHC 34.1 g/dL (32.0-36.0); MCV 85.4 fL (80-100); Monocytes % 3.3 % (3.3-12.3); Neutrophils % 82.4 % (41.7-73.7); Platelets 289 thou/uL (152-406); RBC Red Blood Cell Count 4.27 M/uL (4.33-5.43); Red Cell Distribution Width 14.6 % (12.1-15.2)
[2024-06-12] MEDS ORDERED: MORPHINE 4 MG/ML SYR ONE ×2 (16:01→17:29)
[2024-06-12 16:14] LABS: Albumin 3.8 g/dL (3.4-5.0); Albumin/Globulin Ratio 1.2 (1.1-1.8); Anion Gap 7.3 mEq/L (5.0-15.0); Bilirubin Total 0.3 mg/dL (0.2-1.0); Globulin 3.2 g/dL (2.3-3.5); Potassium 3.3 mEq/L (3.5-5.1)
--- NOTE | 2024-06-12 17:13 | RAD REPORT ---
EXAMINATION: Abdomen Pelvis W Contrast CLINICAL INDICATION: Male, 33 years old.ABD PAIN TECHNIQUE: CT abdomen and pelvis was performed, after the administration of IV contrast, as per [facility] protocol. Axial, sagittal and coronal reconstructions were obtained. One or more of the following dose reduction techniques were used: Automated exposure control, adjustment of the mA and/o r kV according to patient size, and/or iterative reconstruction. Unless otherwise specified, incidental findings do not require dedicated imaging follow-up. [id number]. COMPARISON: 12/16/2023 FINDINGS: LOWER CHEST: No acute process identified.No significant pericardial effusion. Mild circumferential th ickening of the distal esophagus which could reflect esophagitis. UPPER GI: Question diffuse gastric wall thickening. LIVER: Trace pneumobilia. No focal mass. GALLBLADDER/BILE DUCTS: Cholecystectomy.? PANCREAS: No mass, ductal dilation, or kev-pancreatic fluid. SPLEEN: Unremarkable. ADRENALS: No adrenal masses. KIDNEYS AND URETERS: No hydronephrosis.Low density and/or too small to characterize renal lesions whi ch are statistically benign.No renal calculi.No ureteral calculi. ABDOMINAL AORTA AND OTHER VESSELS: Normal caliber aorta and IVC. PERITONEUM: No abnormal free fluid. No free air. LYMPH NODES: No pathologic lymphadenopathy. ABDOMINAL WALL: Unremarkable SMALL BOWEL/COLON: Question wall thickening versus underdistention of the colon.Normal appendix. Low formed stool burden. URINARY BLADDER: Underdistended but grossly unremarkable. REPRODUCTIVE ORGANS: No pathologic process. MUSCULOSKELETAL: Moderate disc height loss L5-S1. ADDITIONAL FINDINGS: None. IMPRESSION: Mild diffuse colonic wall thickening versus underdistention. Correlate for colitis. The stomach also appears to be circumferentially thickened as well as the distal esophagus which could reflect gastritis/esophagitis. Normal appendix. Trace pneumobilia. Correlate for history of possible sphincterotomy and LFTs. Prior cholecystectomy.
--- NOTE | 2024-06-12 17:30 | EDPHYS ---
Physician Documentation [facility] Name: Kate Grubbs Age: 33 yrs Sex: Male : 1990 Arrival Date: 06/12/2024 Time: 15:17 Bed 17 Private MD: ED Physician Tomas Sharpe HPI: 06/12 15:24 This 33 yrs old Male presents to ER via Unassigned with complaints of Abdominal Pain. kb 15:24 Pt is a 33 year old male who presents abd pain that woke him up this morning. Denies kb nausea, vomiting, fever. States he always has diarrhea, but that is unchanged. Pt states he has had this pain several times in the past, is always told nothing is wrong and that he needs to follow up with a specialist. States he has not followed up due to lack of insurance. Pt angry and raising his voice about previous visits.. Historical: - Allergies: 15:39 No Known Allergies; db - PMHx: 15:39 testiculat tortion; db - PSHx: 15:39 Cholecystectomy; right testicle (ys); db - Immunization history:: Adult Immunizations unknown. - Infectious Disease History:: Denies. - Social history:: Smoking status: Reported history of juuling and/or vaping. Patient uses street drugs, marijuana. ROS: 15:23 Constitutional: As per HPI kb Exam: 15:26 Constitutional: This is a well developed, well nourished patient who is awake, alert, kb and in no acute distress. Head/Face: Normocephalic, atraumatic. ENT: Moist Mucous membranes Cardiovascular: Regular rate Respiratory: Respirations even and unlabored. No increased work of breathing. Talking in full sentences Abdomen/GI: Soft, non-tender. No distention Skin: Warm, dry with normal turgor. Normal color. MS/ Extremity: Pulses equal, no cyanosis. Neurovascular intact. Full, normal range of motion. Neuro: Awake and alert, GCS 15, oriented to person, place, time, and situation. Vital Signs: 15:20 BP 158 / 145; Pulse 86; Resp 18; Temp 98.3; Pulse Ox 98% ; Weight 77.11 kg; Height 5 db ft. 7 in. ; Pain 10/10; 17:24 BP 131 / 75; Pulse 51; Resp 16 S; Temp 97.9(O); Pulse Ox 99% on R/A; kc6 15:20 Body Mass Index 26.63 (77.11 kg, 170.18 cm) db 15:20 Pain Scale: Adult db MDM: 15:20 Medical Screening Exam initiated kb 15:50 Data reviewed: vital signs, nurses notes. Historians other than the Patient: Parent: eliz mother. 17:29 Differential diagnosis: gastritis, gastroesophageal reflux disease, non-specific abd kb pain, pancreatitis. Counseling: I had a detailed discussion with the patient and/or guardian regarding the historical points, exam findings, and any diagnostic results supporting the discharge/admit diagnosis, lab results, radiology results, the need for outpatient follow up, a data assistant, to return to the emergency department if symptoms worsen or persist or if there are any questions or concerns that arise at home. 06/12 15:26 Order name: CBC with Diff; Complete Time: 15:57 kb 06/12 15:26 Order name: CMP; Complete Time: 16:15 kb 06/12 15:26 Order name: Lipase; Complete Time: 16:15 kb 06/12 15:26 Order name: CT Abd/Pelvis - IV Contrast Only; Complete Time: 17:23 kb 06/12 15:27 Order name: IV Saline Lock; Complete Time: 15:51 kb 06/12 15:27 Order name: Labs collected and sent; Complete Time: 15:51 kb 06/12 17:12 Order name: Vital Signs; Complete Time: 17:16 kb Administered Medications: 16:01 Drug: Famotidine IVP 20 mg IVP once; dilute with 10 mL 0.9% NaCl; give over 2 minutes kc6 Route: IVP; Site: right antecubital; 17:16 Follow up: Response: No adverse reaction kc6 16:01 Drug: TORadol - Ketorolac IVP 15 mg IVP once Route: IVP; Site: right antecubital; kc6 17:16 Follow up: Response: No adverse reaction; Pain is unchanged, physician notified kc6 16:01 Drug: Ondansetron IVP 4 mg IVP once; over 2 minutes Route: IVP; Site: right antecubital;kc6 17:16 Follow up: Response: No adverse reaction kc6 16:01 Drug: NS 0.9% IV 1000 ml IV at 1 bolus Per protocol; to be given as a bolus over 60 kc6 minutes Route: IV; Rate: 1 bolus; Site: right antecubital; 17:16 Follow up: Response: No adverse reaction; IV Status: Completed infusion; IV Intake: kc6 1000ml 16:17 Drug: morphine IVP or IV 4 mg IVP once over 4 mins Route: IVP; Infused Over: 4 mins; kc6 Site: right antecubital; 17:15 Follow up: Response: No adverse reaction; Pain is decreased; RASS: Alert and Calm (0) kc6 17:39 Drug: morphine IVP or IV 4 mg IVP once over 4 mins Route: IVP; Infused Over: 4 mins; kc6 Site: right antecubital; 18:04 Follow up: Response: No adverse reaction; Pain is unchanged, physician notified kc6 18:04 Drug: Dicyclomine IM 20 mg IM once Route: IM; Site: left deltoid; kc6 Disposition Summary: 06/12/24 17:30 Discharge Ordered Notes: Location: Home kb Condition: Stable kb Diagnosis - Epigastric pain kb - Gastro-esophageal reflux disease with esophagitis kb Followup: kb - With: Emergency Department - When: As needed - Reason: Worsening of condition Followup: kb - With: Private Physician - When: 2 - 3 days - Reason: Recheck today's complaints, Continuance of care, Re-evaluation by your physician Discharge Instructions: - Discharge Summary Sheet kb - Esophagitis kb - Gastroesophageal Reflux Disease, Adult, [id number] kb Forms: - Medication Reconciliation Form kb - Antibiotic Education kb - Prescription Opioid Use kb - Patient Portal Instructions kb - Leadership Thank You Letter kb - Work release form 6 Prescriptions: - Protonix 40 mg Oral Tablet - take 1 tablet ORAL route once daily; 30 tablet; Refills: 0, Product Selection kb Permitted Signatures: Dispatcher [employer] EDMS Alyssa Mayorga FNP-C FNP-Florinda Almeida RN RN kc6 Basilia Hernández RN RN db Corrections: (The following items were deleted from the chart) 15:27 15:27 CBC+H.LAB.BRZ ordered. EDMS EDMS 15:27 15:27 COMPREHENSIVE METABOLIC PANEL+C.LAB.BRZ ordered. EDMS EDMS 15:27 15:27 LIPASE+C.LAB.BRZ ordered. EDMS EDMS 15:27 15:27 Abdomen Pelvis W Con+CT.RAD.BRZ ordered. EDMS EDMS 15:50 15:24 Pt is a 33 year old male who presents abd pain that woke him up this morning. kb Denies nausea, vomiting, fever. States he always has diarrhea, but that is unchanged. . kb
--- NOTE | 2024-06-12 17:30 | ER ---
Nurse's Notes [facility] Name: Kate Grubbs Age: 33 yrs Sex: Male : 1990 Arrival Date: 06/12/2024 Time: 15:17 Bed 17 Private MD: Diagnosis: Epigastric pain;Gastro-esophageal reflux disease with esophagitis Presentation: 06/12 15:20 Chief complaint: Patient states: ABD PAIN WITH NAUSEA WOKE UP THIS AM WITH THE PAIN. db Coronavirus screen: Client denies travel out of the [place] in the last 14 days. At this time, the client does not indicate any symptoms associated with coronavirus-19. Ebola Screen: Patient negative for fever greater than or equal to 101.5 degrees Fahrenheit, and additional compatible Ebola Virus Disease symptoms Patient denies exposure to infectious person. Patient denies travel to an Ebola-affected area in the 21 days before illness onset. No symptoms or risks identified at this time. Initial Sepsis Screen: Does the patient meet any 2 criteria? No. Patient's initial sepsis screen is negative. Does the patient have a suspected source of infection? No. Patient's initial sepsis screen is negative. Risk Assessment: Do you want to hurt yourself or someone else? Patient reports no desire to harm self or others. Onset of symptoms was June 12, 2024. 15:20 Method Of Arrival: Ambulatory db 15:20 Acuity: ALETA 3 db Triage Assessment: 15:23 General: Appears in no apparent distress. uncomfortable, Behavior is cooperative, db agitated. Pain: Complains of pain in abdomen. Neuro: Level of Consciousness is awake, alert, obeys commands, Oriented to person, place, time, situation. Respiratory: Airway is patent Respiratory effort is even, unlabored, Respiratory pattern is regular, symmetrical. GI: Abdomen is flat, non-distended, Reports nausea. Historical: - Allergies: 15:39 No Known Allergies; db - PMHx: 15:39 testiculat tortion; db - PSHx: 15:39 Cholecystectomy; right testicle (ys); db - Immunization history:: Adult Immunizations unknown. - Infectious Disease History:: Denies. - Social history:: Smoking status: Reported history of juuling and/or vaping. Patient uses street drugs, marijuana. Screenin:02 [facility] ED Fall Risk Assessment (Adult) History of falling in the last 3 months, kc6 including since admission No falls in past 3 months (0 pts) Confusion or Disorientation No (0 pts) Intoxicated or Sedated No (0 pts) Impaired Gait No (0 pts) Mobility Assist Device Used No (0 pt) Altered Elimination No (0 pt) Score/Fall Risk Level 0 - 2 = Low Risk Oriented to surroundings, Maintained a safe environment. Abuse screen: Denies threats or abuse. Denies injuries from another. Nutritional screening: No deficits noted. Tuberculosis screening: No symptoms or risk factors identified. Assessment: 16:02 General: Appears in no apparent distress. uncomfortable, well groomed, well developed, kc6 Behavior is cooperative, appropriate for age, restless. Pain: Complains of pain in epigastric area Pain does not radiate. Quality of pain is described as sharp, Pain began 4 hours ago. Is continuous. Neuro: Level of Consciousness is awake, alert, obeys commands, Oriented to person, place, time, situation, Appropriate for age. Cardiovascular: Capillary refill < 3 seconds. Respiratory: Airway is patent Trachea midline Respiratory effort is even, unlabored, Respiratory pattern is regular, symmetrical. GI: Abdomen is flat, non-distended, Bowel sounds present X 4 quads. Abd is soft X 4 quads Abdomen is tender to palpation in epigastric area Reports upper abdominal pain, diarrhea, nausea, Patient currently denies vomiting. : No signs and/or symptoms were reported regarding the genitourinary system. EENT: No signs and/or symptoms were reported regarding the EENT system. Derm: No signs and/or symptoms reported regarding the dermatologic system. Skin is intact, is healthy with good turgor, Skin is pink, warm \T\ dry. Musculoskeletal: No signs and/or symptoms reported regarding the musculoskeletal system. Circulation, motion, and sensation intact. Range of motion: intact in all extremities. 17:16 Reassessment: Patient appears in no apparent distress at this time. No changes from kc6 previously documented assessment. Patient and/or family updated on plan of care and expected duration. Pain level reassessed. Patient is alert, oriented x 3, equal unlabored respirations, skin warm/dry/pink. 18:04 Reassessment: Patient appears in no apparent distress at this time. No changes from kc6 previously documented assessment. Patient and/or family updated on plan of care and expected duration. Pain level reassessed. Patient is alert, oriented x 3, equal unlabored respirations, skin warm/dry/pink. Vital Signs: 15:20 BP 158 / 145; Pulse 86; Resp 18; Temp 98.3; Pulse Ox 98% ; Weight 77.11 kg; Height 5 db ft. 7 in. ; Pain 10/10; 17:24 BP 131 / 75; Pulse 51; Resp 16 S; Temp 97.9(O); Pulse Ox 99% on R/A; kc6 15:20 Body Mass Index 26.63 (77.11 kg, 170.18 cm) db 15:20 Pain Scale: Adult db ED Course: 15:19 Patient arrived in ED. mr 15:20 [facility]C [facility] kb 15:20 Tomas Sharpe MD is Attending Physician. kb 15:23 Arm band placed on Patient placed in an exam room. db 15:31 Radiology exam delayed due to lab results not completed at this time. (BUN/Creatinine) jc4 IV insertion attempt and/or patient not having appropriate IV at this time. 15:37 Florinda Mosquera, RN is Primary Nurse. kc6 15:39 Triage completed. db 15:51 Initial lab(s) drawn, by me, sent to lab. Inserted saline lock: 20 gauge in right kc6 antecubital area, using aseptic technique. Blood collected. Flushed with 10 mL NS. Patient maintains SpO2 saturation greater than 95% on room air. 16:02 Patient requests pain medication. kc6 16:02 Patient has correct armband on for positive identification. Bed in low position. Call [facility] light in reach. Side rails up X 1. Adult w/ patient. Pulse ox on. NIBP on. Door closed. Noise minimized. Lights dimmed. Warm blanket given. Pillow given. Verbal reassurance given. 16:30 CT Abd/Pelvis - IV Contrast Only In Process Unspecified. EDMS 18:04 No provider procedures requiring assistance completed. IV discontinued, intact, kc6 bleeding controlled, No redness/swelling at site. Pressure dressing applied. Administered Medications: 16:01 Drug: Famotidine IVP 20 mg IVP once; dilute with 10 mL 0.9% NaCl; give over 2 minutes kc6 Route: IVP; Site: right antecubital; 17:16 Follow up: Response: No adverse reaction kc6 16:01 Drug: TORadol - Ketorolac IVP 15 mg IVP once Route: IVP; Site: right antecubital; kc6 17:16 Follow up: Response: No adverse reaction; Pain is unchanged, physician notified kc6 16:01 Drug: Ondansetron IVP 4 mg IVP once; over 2 minutes Route: IVP; Site: right antecubital;kc6 17:16 Follow up: Response: No adverse reaction kc6 16:01 Drug: NS 0.9% IV 1000 ml IV at 1 bolus Per protocol; to be given as a bolus over 60 kc6 minutes Route: IV; Rate: 1 bolus; Site: right antecubital; 17:16 Follow up: Response: No adverse reaction; IV Status: Completed infusion; IV Intake: kc6 1000ml 16:17 Drug: morphine IVP or IV 4 mg IVP once over 4 mins Route: IVP; Infused Over: 4 mins; kc6 Site: right antecubital; 17:15 Follow up: Response: No adverse reaction; Pain is decreased; RASS: Alert and Calm (0) kc6 17:39 Drug: morphine IVP or IV 4 mg IVP once over 4 mins Route: IVP; Infused Over: 4 mins; kc6 Site: right antecubital; 18:04 Follow up: Response: No adverse reaction; Pain is unchanged, physician notified kc6 18:04 Drug: Dicyclomine IM 20 mg IM once Route: IM; Site: left deltoid; kc6 Medication: 18:05 VIS not applicable for this client. kc6 Intake: 17:16 IV: 1000ml; Total: 1000ml. kc6 Outcome: 17:30 Discharge ordered by . eliz 18:04 Discharged to home ambulatory, with family, kc6 18:04 Condition: good 18:04 Discharge instructions given to patient, family, Instructed on discharge instructions, follow up and referral plans. no drinking with medication, no driving heavy equipment, medication usage, Demonstrated understanding of instructions, follow-up care, medications, Prescriptions given X 1, 18:05 Patient left the ED. kc6 Signatures: Dispatcher [employer] EDAlyssa Bales, ROBERTO-C [employer] INSPECTOR-CkSalena Conti, Florinda Garrett, RN RN kc6 Basilia Hernández, RN RN db Sean, Puneet jc4
[2024-06-12] MEDS ORDERED: DICYCLOMINE HCL 20 MG/2 ML AMP IM ONE (17:58)
[2024-06-12 19:36] VITALS: BP 131/75; TEMP 97.9; O2SAT 99
== END 2024-06-12 18:05 | disposition home or self-care (01) ==
LOC: ER 15:17
DX: K21.00 Gastro-esophageal reflux disease with esophagitis, without bleeding (principal)
CPT/HCPCS: 36415; 74177; 80053; 83690; 85025; J0500; J2405; J7030; Q9967